=== PATIENT | male | born 1970 | race African-American/Black ===

== ENCOUNTER 2023-11-22 03:33 | Emergency (ER) | payer OTHER ==
[~2023-11-22] VITALS: Ht 177.8 cm; Wt 93.5 kg
[2023-11-22] MEDS ORDERED: CYCL-707 PO (07:01)
[2023-11-22] MEDS ORDERED: DICL75TA PO (07:01)
[2023-11-22] MEDS ORDERED: LIDO5DIS41 TD (07:01)
[2023-11-22 07:13] VITALS: BP 124/84; TEMP 98.4; O2SAT 100
== END 2023-11-22 07:15 | disposition home or self-care (01) ==
LOC: M ED 03:33
DX: S13.4XXA Sprain of ligaments of cervical spine, initial encounter (principal); S46.011A Strain of muscle(s) and tendon(s) of the rotator cuff of right shoulder, initial encounter; Y92.9 Unspecified place or not applicable; Y93.9 Activity, unspecified; Y99.0 Civilian activity done for income or pay; Z79.899 Other long term (current) drug therapy